=== PATIENT | male | born 1970 | race Caucasian/White ===

== ENCOUNTER 2019-07-29 12:05 | Emergency (ER) | payer MEDICAID, OTHER ==
[~2019-07-29] VITALS: Ht 175.3 cm; Wt 67.4 kg
--- NOTE | 2019-07-29 12:09 | NUR ---
CALLED FOR PT. PT IN RESTROOM PER BYSTANDER.
[2019-07-29 12:17] VITALS: BP 119/77
--- NOTE | 2019-07-29 12:30 | NUR ---
PT C/O "MY WHOLE BODY ACHES", CONGESTION, SORE THROAT AND SUBJECTIVE FEVERS X 1 WEEK. PT ALSO C/O DIARRHEA. PT REPORTS HX OF C-DIFF. PT NOT IN ANY DISTRESS.
[2019-07-29] MEDS ORDERED: ACETAMINOPHEN 500 MG TABLET ONE (13:05)
--- NOTE | 2019-07-29 13:08 | NUR ---
MED ORDERED FROM PHARMACY.
--- NOTE | 2019-07-29 13:26 | NUR ---
CALLED PHARMACY REQEUSTING BICILLIN INJ.
--- NOTE | 2019-07-29 13:41 | NUR ---
Patient/Caregiver given discharge instructions and they have confirmed that they understand the instructions. Patient ambulatory with steady gait.
[2019-07-29] MEDS ORDERED: BICILLIN-LA 1,200,000 UNITS/2 ML IM ONE (14:00)
[2019-07-29] MEDS ORDERED: ACETAMINOPHEN 500 MG TABLET PO ONE (14:00)
== END 2019-07-29 13:51 | disposition home or self-care (01) ==
LOC: ED 13:08
DX: J02.0 Streptococcal pharyngitis (principal); F17.200 Nicotine dependence, unspecified, uncomplicated
CPT/HCPCS: 96372; 99283; J0561

== ENCOUNTER 2021-02-06 15:50 | Emergency (ER) | payer MEDICAID ==
[~2021-02-06] VITALS: Ht 175.3 cm; Wt 68.8 kg
[2021-02-06 18:46] VITALS: BP 114/75
[2021-02-06] MEDS ORDERED: KETOROLAC 30 MG/1 ML ONE (19:57)
[2021-02-06] MEDS ORDERED: KETOROLAC 30 MG/1 ML IM ONE (20:00)
== END 2021-02-06 21:19 | disposition home or self-care (01) ==
LOC: ED 21:00
DX: M54.42 Lumbago with sciatica, left side (principal); M54.16 Radiculopathy, lumbar region; M25.552 Pain in left hip
CPT/HCPCS: 73502; 96372; 99283; J1885

== ENCOUNTER 2021-03-01 20:56 | Emergency (ER) | payer MEDICAID ==
[~2021-03-01] VITALS: Ht 175.3 cm; Wt 70.0 kg
[2021-03-01] MEDS ORDERED: KETOROLAC 30 MG/1 ML IM ONE (22:30)
[2021-03-01] MEDS ORDERED: METHOCARBAMOL 750 MG TABLET PO ONE (22:30)
--- NOTE | 2021-03-02 00:24 | NUR ---
pt c/o left hip pain [id number], denies trauma, states it may be sciatica. pt wlaked back to room with cane with a smooth and steady gait, nad, Patient is resting comfortably in bed. Bed in lowest, rails engaged, call light on lap. Vital Signs within normal limits. placed on spo2/bp monitoring, WCTM.
[2021-03-02] MEDS ORDERED: METHOCARBAMOL 750 MG TABLET ONE (01:04)
[2021-03-02] MEDS ORDERED: KETOROLAC 30 MG/1 ML ONE (01:04)
[2021-03-02 01:11] VITALS: BP 104/86
--- NOTE | 2021-03-02 01:26 | NUR ---
Patient given discharge instructions and they have confirmed that they understand the instructions. Patient ambulatory with steady gait. NAD, all questions answered appropriately, denies additional needs at this time. No personal belongings left in room after discharge.
== END 2021-03-02 01:30 | disposition home or self-care (01) ==
LOC: ED 22:00
DX: M25.552 Pain in left hip (principal); M54.32 Sciatica, left side; F17.210 Nicotine dependence, cigarettes, uncomplicated
CPT/HCPCS: 96372; 99283; 99406; J1885